=== PATIENT | female | born 1930 | race Hispanic/Latino ===

== ENCOUNTER 2016-12-14 18:39 | Emergency (ER) | payer MEDICARE ==
[2016-12-14 18:46] VITALS: BMI 26.4
[2016-12-14 18:47] VITALS: BP 124/60; PULSE 90; RESP 18; TEMP 98.2; O2SAT 97
--- NOTE | 2016-12-14 19:22 | ED PDOC ---
Arrival/HPI - General Chief Complaint: Female Genitourinary Time Seen by Provider: 12/14/16 19:15 Historian: Family - History of Present Illness Narrative History of Present Illness (Text): 12/14/16 19:27 86 yo female w/PMHx of HTN, AFib, OA, dementia come in accompanied by family member for evaluation of vaginal irritation, redness gradually developed for past few days.As per family, pt is incontinent. Otherwise, family denies fever, chills, abd. pain, N/V, blood noted on diaper, denies any other active complaints. At the time of evaluation, pt is awake, comfortable, not in any apparent distress. Past Medical History - Provider Review Nursing Documentation Reviewed: Yes - Travel History Have you recently traveled outside [place] w/in the past 3 mons?: No - Infectious Disease Hx of Infectious Diseases: None - Tetanus Immunization Tetanus Immunization: Unknown - Cardiac Hx Atrial Fibrillation: Yes Hx Hypertension: Yes - Neurological Hx Paralysis: No - Endocrine/Metabolic Hx Hypothyroidism: Yes - Hematological/Oncological Hx Blood Transfusions: No Hx Blood Transfusion Reaction: No - Musculoskeletal/Rheumatological Hx Falls: Yes Hx Osteoporosis: Yes - Psychiatric Hx Emotional Abuse: No Hx Physical Abuse: No Hx Substance Use: No - Surgical History Hx Thyroidectomy: Yes - Anesthesia Hx Anesthesia: Yes Hx Anesthesia Reactions: No Hx Malignant Hyperthermia: No - Suicidal Assessment Feels Threatened In Home Enviroment: No Family/Social History - Physician Review Nursing Documentation Reviewed: Yes Family/Social History: No Known Family HX Smoking Status: Never Smoked Hx Alcohol Use: No Hx Substance Use: No Hx Substance Use Treatment: No Allergies/Home Meds Allergies/Adverse Reactions: Allergies No Known Allergies Allergy (Verified 07/28/12 08:49) Home Medications: Home Meds Medication Instructions Recorded Confirmed Levothyroxine Sodium 88 mcg PO DAILY 07/28/12 12/14/16 Metoprolol Succinate 25 mg PO DAILY 07/28/12 12/14/16 Warfarin [Coumadin] 2 tab PO DAILY 07/28/12 12/14/16 Triamterene/Hydrochlorothiazid 1 tab PO DAILY 12/15/15 12/14/16 [Triamterene-Hctz 37.5-25 mg Tb] traMADol [Ultram] 50 mg PO Q12 PRN 12/15/15 12/14/16 Calcium Carbonate/Vitamin D3 1 tab PO DAILY 12/14/16 12/14/16 [Caltrate 600 Plus D3 Tablet] Multivitamin [One Daily Essential] 1 tab PO DAILY 12/14/16 12/14/16 Review of Systems - Physician Review All systems were reviewed & negative as marked: Yes - Review of Systems Constitutional: Normal Eyes: Normal ENT: Normal Respiratory: Normal Cardiovascular: Normal Gastrointestinal: Normal. absent: Abdominal Pain Genitourinary Female: Other (vaginal irrittaion). absent: Vaginal Bleeding, Vaginal Discharge Musculoskeletal: Normal Skin: Normal Neurological: Normal Endocrine: Normal Hemo/Lymphatic: Normal Psychiatric: Normal Physical Exam Vital Signs Temp Pulse Resp BP Pulse Ox 12/14/16 18:47 98.2 F 90 18 124/60 97 Temperature: Afebrile Blood Pressure: Normal Pulse: Regular Respiratory Rate: Normal Appearance: Positive for: Well-Appearing, Non-Toxic, Comfortable Pain Distress: None Mental Status: Positive for: Alert and Oriented X 3 - Systems Exam Head: Present: Atraumatic, Normocephalic Pupils: Present: PERRL Extroacular Muscles: Present: EOMI Conjunctiva: Present: Normal Mouth: Present: Moist Mucous Membranes Neck: Present: Normal Range of Motion Respiratory/Chest: Present: Clear to Auscultation, Good Air Exchange. No: Respiratory Distress, Accessory Muscle Use Cardiovascular: Present: Regular Rate and Rhythm, Normal S1, S2. No: Murmurs Abdomen: Present: Normal Bowel Sounds. No: Tenderness, Distention, Peritoneal Signs, Rebound, Guarding Genitourinary/Pelvic Exam: Present: Odor, Other (diffuse perineal erythema sharply demarcated with (+) urine odor, No lesion, no edema or dischasrges noted.). No: Vaginal Discharge, Vaginal Bleeding, Vaginal Lesions Back: No: CVA Tenderness Upper Extremity: Present: Normal ROM, NORMAL PULSES. No: Deformity Lower Extremity: Present: NORMAL PULSES, Normal ROM. No: Swelling, Deformity Neurological: Present: GCS=15, Speech Normal Skin: Present: Warm, Dry, Normal Color. No: Rashes Psychiatric: Present: Alert Medical Decision Making ED Course and Treatment: 12/14/16 On re-evaluation, pt is afebrile, hemodynamicaly stable. Non-toxic. Tolerate PO well in ED. ABd: benign. back: (-) CVA tenderness. : exam c/w vaginitis. back: (-) CVA tenderness UA results review and c/w UTI. Family advised on course of ds and tx. Ucx- pending ref. to F/u with PMD in 1-2 days for re-eavl. return to ED if any worsening or new changes. - Lab Interpretations Lab Results: Lab Results 12/14/16 19:33: Urine Color Yellow, Urine Appearance Slight-cloudy, Urine pH 7.5 , Ur Specific [place] 1.010, Urine Protein Negative, Urine Glucose (UA) Negative , Urine Ketones Negative, Urine Blood Trace-intact H, Urine Nitrate Negative, Urine Bilirubin Negative, Urine Urobilinogen 0.2, Ur Leukocyte Esterase Moderate H, Urine RBC 1 - 3, Urine WBC 25 - 30, Ur Epithelial Cells 0 - 2, Urine Bacteria Large Interpretation: Abnormal lab values Disposition/Present on Arrival - Present on Arrival Any Indicators Present on Arrival: No History of DVT/PE: No History of Uncontrolled Diabetes: No Urinary Catheter: No History of Decub. Ulcer: No History Surgical Site Infection Following: None - Disposition Have Diagnosis and Disposition been Completed?: Yes Diagnosis: UTI (urinary tract infection), Vaginitis and vulvovaginitis Disposition Time: 20:04 Patient Plan: Discharge Patient Problems: Current Active Problems Problem Status Onset UTI (urinary tract infection) Acute Vaginitis and vulvovaginitis Acute Condition: STABLE Discharge Instructions (ExitCare): Urinary Tract Infection in Women (ED), Vaginitis (ED) Additional Instructions: KEEP AREA CLEAN, DRY CHANGE DIAPER REGULAR, DO NOT KEEP WET DIAPER ON FOR LONG TIME TAKE ANTIBIOTIC PRESCRIBED APPLY CREAM TOPICALLY PRESCRIBED FOLLOW UP WITH PMD IN 1-2 DAYS FOR RE-EVALUATION. RETURN TO ED IF ANY WORSENING OR NEW CHANGES. Prescriptions: Cephalexin [cephalexin] 500 mg PO BID #14 cap Miconazole Nitrate/Zinc Ox/Pet [Vusion 0.25%-81.35%-15%] 1 oin TP TID #1 oin Referrals: Jay Barrow MD [Primary Care Provider] - Follow up with primary Forms: [employer] ([place])
[2016-12-14 19:41] LABS: PH,URINE 7.5 (4.7-8.0); URINE BILIRUBIN NEGATIVE (NEGATIVE); URINE BLOOD TRACE-INTACT (NEGATIVE); URINE GLUCOSE (UA) NEGATIVE (NEGATIVE); URINE KETONE NEGATIVE (NEGATIVE); URINE LEUKOCYTE ESTERASE MODERATE Leu/uL (NEGATIVE); URINE PROTEIN NEGATIVE mg/dL (<30 mg/dL); URINE UROBILINOGEN 0.2 E.U./dL (<1 E.U./dL)
[2016-12-14 19:43] LABS: URINE APPEARANCE SLIGHT-CLOUDY (CLEAR); URINE COLOR YELLOW (YELLOW)
[2016-12-14 19:47] LABS: URINE BACTERIA LARGE (NEG); URINE EPITHELIAL CELLS 0 - 2 /hpf (0-5); URINE WBC 25 - 30 /hpf (0-6)
== END 2016-12-14 20:40 | disposition home or self-care (01) ==
LOC: ED 18:39
DX: N76.0 Acute vaginitis (principal); N39.0 Urinary tract infection, site not specified